=== PATIENT | male | born 1985 | race Asian ===

== ENCOUNTER 2017-10-15 13:00 | Emergency (ER) | payer BC ==
--- NOTE | 2017-10-15 13:02 | UC ---
Cardiac HPI - HPI Summary HPI Summary: Pt presents with chest pain and dizziness that occurred for about 5 minutes approximately 3 hours [employer]. He tells me that he was working on things around the house and developed spontanous "cramping" in the left side of his chest. Lasted about 5 minutes and made him nervous - began to feel lightheaded and dizzy. He only had a small cookie to eat today. He has had chest pain similar to this in the past few months, but only lasted a few seconds and says it never bothered him. Currently denies fever, chills, cough, SOB, chest pain, abdominal pain, n/v /d/c. Hx of asthma and positive ppd w/o dx of active TB. No fam hx of CV dz. - History of Current Complaint Stated Complaint: CHEST PAIN Time Seen by Provider: 10/15/17 13:01 Hx Obtained From: Patient Onset/Duration: Sudden Onset Timing: Intermittent Episodes Lasting: - 5min Initial Severity: Mild Current Severity: None Chest Pain Location: Left Anterior - Allergy/Home Medications Allergies/Adverse Reactions: Allergies Allergy/AdvReac Type Severity Reaction Status Date / Time No Known Allergies Allergy Verified 10/15/17 13:18 Home Medications: Home Medications Budesonide/Formote 160/4.5(NF) [Symbicort 160/4.5 (NF)] 1 puff INH BID 10/15/17 [History Confirmed 10/15/17] Fexofenadine HCl 180 mg PO DAILY PRN 10/15/17 [History Confirmed 10/15/17] PMH/Surg Hx/FS Hx/Imm Hx Previously Healthy: Yes Respiratory History: Asthma - Surgical History Surgical History: None - Family History Known Family History: Positive: Hypertension, Other - Lung Cancer - Social History Occupation: Employed Full-time Lives: With Family Alcohol Use: None Substance Use Type: None Smoking Status (MU): Never Smoked Tobacco Review of Systems Constitutional: Negative Skin: Negative Eyes: Negative ENT: Negative Respiratory: Negative Cardiovascular: Chest Pain Gastrointestinal: Negative Genitourinary: Negative Motor: Negative Neurovascular: Negative Musculoskeletal: Negative Neurological: Negative Psychological: Negative All Other Systems Reviewed And Are Negative: Yes Physical Exam - Summary Physical Exam Summary: GENERAL: NAD. WDWN. No pain distress. SKIN: No rashes, sores, ulcers, masses, lesions. HEENT: Head: AT/NC Eyes: PERRLA. EOM intact. Ears: Hearing grossly normal. TMs intact, no bulging, erythema, or edema. Nose: Nasal mucosa pink and moist. NTTP maxillary and frontal sinus. Throat: Posterior oropharynx without exudates, erythema, or tonsillar enlargement. Uvula midline. NECK: Supple. Nontender. No lymphadenopathy. CHEST: CTAB. No r/r/w. No accessory muscle use. Breathing comfortably and in no distress. CV: RRR. Without m/r/g. Pulses intact. Brisk cap refill. ABDOMEN: Soft. NTTP. No distention or guarding., No organomegaly. No CVA tenderness. Bowel sounds present x4. NEURO: Alert. CN II-XII grossly intact. PSYCH: Age appropriate behavior. Triage Information Reviewed: Yes - Assessment/Plan Course Of Treatment: EKG: sinus blanka 52bpm with early repol j point elevation. As read by Dr. Molina. No reciprocal changes. CXR: IMPRESSION: NO ACTIVE CARDIOPULMONARY DISEASE. I had a long conversation with the pt regarding his symptoms. For a more appropriate workup of his chest pain - he should seek further evaluation in the ED. He did not wish to do this, but wants to monitor his symptoms and if they return in the future will go to the ED. - Clinical Impression Provider Diagnoses: Chest pain Discharge - Sign-Out/Discharge Documenting (check all that apply): Discharge/Admit/Transfer - Discharge Plan Condition: Stable Disposition: HOME Referrals: Antoinette MCINTYRE,Sydney Wen [Nurse Practitioner] - [facility] [place] [facility] [Outside] - As Soon As Possible Additional Instructions: If you develop a fever, shortness of breath, chest pain, dizziness, new or worsening symptoms - please go to the ED. - Billing Disposition and Condition Condition: STABLE Disposition: HOME
[2017-10-15 13:24] VITALS: BP 127/71
--- NOTE | 2017-10-15 14:11 | RAD ---
HISTORY: Chest pain COMPARISONS: None VIEWS: 4: Frontal dual-energy and lateral views of the chest. FINDINGS: CARDIOMEDIASTINAL SILHOUETTE: The cardiomediastinal silhouette is normal. LORENA: The lorena are normal. PLEURA: The costophrenic angles are sharp. No pleural abnormalities are noted. LUNG PARENCHYMA: The lungs are clear. ABDOMEN: The upper abdomen is clear. There is no subphrenic gas. BONES AND SOFT TISSUES: No bone or soft tissue abnormalities are noted. OTHER: None. IMPRESSION: NO ACTIVE CARDIOPULMONARY DISEASE.
== END 2017-10-15 14:18 | disposition home or self-care (01) ==
LOC: UCEAST 13:00
DX: R07.89 Other chest pain (principal); R00.1 Bradycardia, unspecified; R42 Dizziness and giddiness; J45.909 Unspecified asthma, uncomplicated
CPT/HCPCS: 71046; 93005; 99211; G0463